=== PATIENT | male | born 1970 ===

== ENCOUNTER 2025-07-29 10:59 | Outpatient (CLI) | payer OTHER | END 2025-07-29 11:00 | disposition home or self-care (01) | LOC: CSHSLEEP 10:59 | DX: G47.33 Obstructive sleep apnea (adult) (pediatric) (principal); R53.83 Other fatigue; F31.9 Bipolar disorder, unspecified; E11.9 Type 2 diabetes mellitus without complications; E66.9 Obesity, unspecified; Z68.36 Body mass index [BMI] 36.0-36.9, adult; R06.83 Snoring | CPT/HCPCS: 95810 ==